=== PATIENT | male | born 1940 | race Caucasian/White ===

== ENCOUNTER 2021-02-28 | Observation (INO) | payer BC, MEDICARE ==
[~2021-02-28] VITALS: Ht 167.6 cm; Wt 73.0 kg
--- NOTE | 2021-02-28 00:05 | NUR ---
LATE ENTRY DUE TO PATIENT CARE BLADDER SCAN [id number]
--- NOTE | 2021-02-28 00:26 | NUR ---
BLANK FROM HOME. PT C/O OF URINARY RETENTION AND BLOOD CLOTS. PT REPORTS BEING AT [facility] 9 MONTHS AGO WITH SAME PROBLEM WITH BLOOD CLOT BLOCKING URETHRA TRACT. 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 ASKED IF ESBL AN DIDNT KNOW HX OF PROSTATE CANCER., WATCHMEN PROCEDURE PT TIP OF PENIS AND BREIF SPOTTED WITH DARK BLOOD. PT HAS BEEN DRIBBLING FOR 24HRS. PAIN 8/10 ATTACHED TO CARD/SP02/BP MONITORS. VSS. NADN BED IN LOW POSITION, RAILS ENAGGED. CALL LIGHT ON LAP.
[2021-02-28] MEDS ORDERED: LIDOCAINE 2%,20 ML JEL.PF.APP MM ONE ×2 (00:36→02:17)
[2021-02-28] MEDS ORDERED: PLEASE ENTER ALLERGIES MC SCH (01:00)
[2021-02-28] MEDS ORDERED: MORPHINE SULFATE 4 MG/ML, 1ML IVPush ONE ×2 (01:00→02:30)
[2021-02-28] MEDS ORDERED: ONDANSETRON 2MG/ML, 2ML IVPush ONE (01:00)
--- NOTE | 2021-02-28 01:29 | NUR ---
ATTEMPTED 16 FR [facility] CATHTER. COULD NOT GET THE CATHTER PASSED THE PROSTATE, WILL ATTEMPT WITH A COUDE CATHETER.
[2021-02-28] MEDS ORDERED: ONDANSETRON 2MG/ML, 2ML ONE ×2 (01:51→04:56)
[2021-02-28] MEDS ORDERED: MORPHINE SULFATE 4 MG/ML, 1ML ONE ×2 (01:51→02:25)
--- NOTE | 2021-02-28 03:28 | NUR ---
ATTEMPTED COUDE CATHETER WITH STERILE TECHNIQUE WITH NO SUCCESS. DELORES HICKS AWARE, UROLOGY PAGED.
[2021-02-28] MEDS ORDERED: FENTANYL PF 100 MCG/2ML ONE (04:23)
[2021-02-28] MEDS ORDERED: LIDOCAINE-MPF 2% ,5ML ONE (04:25)
[2021-02-28] MEDS ORDERED: DEXAMETHASONE 4 MG/ML, 1ML ONE (04:56)
[2021-02-28] MEDS ORDERED: SUCCINYLCHOLINE 20 MG/ML, 10ML ONE (04:56)
[2021-02-28] MEDS ORDERED: PROPOFOL 10 MG/ML, 20ML ONE (04:56)
[2021-02-28] MEDS ORDERED: CEFAZOLIN 1,000 MG ONE (04:56)
[2021-02-28] MEDS ORDERED: HYDROmorphone 1 MG/ML, 1ML INJ IVPush PRN (05:00)
[2021-02-28] MEDS ORDERED: hydrALAzine 20 MG/ML, 1ML IV PRN (05:00)
[2021-02-28] MEDS ORDERED: LABETALOL 5MG/ML, 20ML IV PRN (05:00)
[2021-02-28] MEDS ORDERED: EPHEDRINE 50 MG/ML, 1ML IVPush PRN (05:00)
[2021-02-28] MEDS ORDERED: ONDANSETRON 2MG/ML, 2ML IVPush PRN (05:00)
[2021-02-28] MEDS ORDERED: PROMETHAZINE 25 MG/ML, 1ML IVPush PRN (05:00)
[2021-02-28] MEDS ORDERED: FENTANYL PF 100 MCG/2ML IV PRN (05:00)
[2021-02-28] MEDS ORDERED: OXYcodone 5 MG/5 ML ORAL.SOL UDC PO PRN (05:00)
[2021-02-28] MEDS ORDERED: ACETAMINOPHEN 325 MG TABLET PO PRN (05:00)
[2021-02-28] MEDS ORDERED: EPHEDRINE 50 MG/ML, 1ML ONE (05:06)
[2021-02-28 08:32] VITALS: BP 114/74
[2021-02-28 12:30] VITALS: BP 122/76
== END 2021-02-28 13:20 | disposition home or self-care (01) ==
LOC: ED 00:33 → 4NE 06:56 → ED 10:20
PROVIDERS: ADMIT Urology; ATTEND Urology
DX: N35.919 Unspecified urethral stricture, male, unspecified site (principal); Z20.822 Contact with and (suspected) exposure to COVID-19; N39.490 Overflow incontinence; N40.1 Benign prostatic hyperplasia with lower urinary tract symptoms; R33.9 Retention of urine, unspecified; R31.9 Hematuria, unspecified; M10.9 Gout, unspecified; I48.91 Unspecified atrial fibrillation; F41.9 Anxiety disorder, unspecified; Z85.46 Personal history of malignant neoplasm of prostate; Z87.891 Personal history of nicotine dependence; Z92.3 Personal history of irradiation; Z79.899 Other long term (current) drug therapy
CPT/HCPCS: 52001; 52214; 52282; 87635; 96374; 96375; 99284; G0378; J0330; J0690; J1100; J2270; J2405; J2704; J3010; J3490